=== PATIENT | male | born 1970 | race Caucasian/White ===

== ENCOUNTER 2020-11-18 10:48 | Day surgery (SDC) | payer OTHER ==
[~2020-11-18] VITALS: Ht 172.7 cm; Wt 86.2 kg
[2020-11-18] MEDS ORDERED: MIDAZOLAM 1 MG/ML, 2ML ONE (11:27)
[2020-11-18] MEDS ORDERED: LIDOCAINE-MPF 2% ,5ML ONE (11:28)
[2020-11-18] MEDS ORDERED: PROPOFOL 10 MG/ML, 20ML ONE (11:28)
[2020-11-18] MEDS ORDERED: ROCURONIUM 10MG/ML,5ML ONE (11:28)
[2020-11-18] MEDS ORDERED: CEFAZOLIN 1,000 MG ONE ×2 (11:28)
[2020-11-18] MEDS ORDERED: ONDANSETRON 2MG/ML, 2ML ONE ×2 (11:28→13:49)
[2020-11-18] MEDS ORDERED: FENTANYL PF 250 MCG/5ML ONE (11:28)
[2020-11-18] MEDS ORDERED: DEXAMETHASONE 4 MG/ML, 1ML ONE ×2 (11:28)
[2020-11-18 11:37] VITALS: BP 125/83
[2020-11-18] MEDS ORDERED: BUPIVACAINE/PF 0.5% ONE (11:59)
[2020-11-18] MEDS ORDERED: CHLORHEXIDINE 15 ML UDC MM ONE (12:00)
[2020-11-18] MEDS ORDERED: LACTATED RINGERS 1,000 ML IV SCH (12:00)
[2020-11-18] MEDS ORDERED: EPINEPHRINE 1 MG/ML, 1ML ONE ×2 (12:00→12:34)
[2020-11-18] MEDS ORDERED: SUGAMMADEX 200 MG/2 ML IVPush ONE (12:13)
[2020-11-18] MEDS ORDERED: LIDOCAINE/PF 1%, 30ML ONE (12:34)
[2020-11-18] MEDS ORDERED: SODIUM CHLORIDE 0.9%, 500ML IV ONE (12:46)
[2020-11-18] MEDS ORDERED: MEPERIDINE/PF 25MG/0.5ML IVPush PRN (13:00)
[2020-11-18] MEDS ORDERED: DIAZEPAM 5 MG/ML, 2ML IVPush PRN (13:00)
[2020-11-18] MEDS ORDERED: ACETAMINOPHEN 325 MG TABLET PO PRN (13:00)
[2020-11-18] MEDS ORDERED: DIPHENHYDRAMINE 50 MG/ML, 1ML IVPush PRN (13:00)
[2020-11-18] MEDS ORDERED: PROMETHAZINE 25 MG/ML, 1ML IVPush PRN (13:00)
[2020-11-18] MEDS ORDERED: ONDANSETRON 2MG/ML, 2ML IVPush PRN (13:00)
[2020-11-18] MEDS ORDERED: HYDROmorphone 1 MG/ML, 1ML INJ IVPush PRN (13:00)
[2020-11-18] MEDS ORDERED: OXYC5TAB2 PO ×2 (13:29→13:31)
[2020-11-18] MEDS ORDERED: OXYcodone 5 MG/5 ML ORAL.SOL UDC PO PRN (13:30)
[2020-11-18] MEDS ORDERED: OXYcodone 5 MG/5 ML ORAL.SOL UDC ONE (13:47)
[2020-11-18] MEDS ORDERED: FENTANYL PF 100 MCG/2ML ONE (13:47)
[2020-11-18] MEDS: FENTANYL PF 100 MCG/2ML IV PRN ×3 (14:02→14:31)
[2020-11-18] MEDS: OXYcodone 5 MG/5 ML ORAL.SOL UDC PO PRN ×2 (14:09→15:12)
[2020-11-18] MEDS ORDERED: PROMETHAZINE 25 MG/ML, 1ML ONE (14:21)
== END 2020-11-18 16:45 | disposition home or self-care (01) ==
LOC: OUT 10:48
PROVIDERS: ATTEND Surgery
DX: K43.2 Incisional hernia without obstruction or gangrene (principal); F12.90 Cannabis use, unspecified, uncomplicated; Z20.822 Contact with and (suspected) exposure to COVID-19; Z79.899 Other long term (current) drug therapy; Z87.891 Personal history of nicotine dependence
CPT/HCPCS: 49656; 87635; C1781; J0171; J0690; J1100; J2250; J2405; J2550; J2704; J3010; J7040; S2900